=== PATIENT | male | born 1965 | race Hispanic/Latino ===

== ENCOUNTER 2020-07-08 19:02 | Emergency (ER) | payer OTHER ==
[2020-07-08 21:15] VITALS: BP 126/80
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
== END 2020-07-08 23:45 | disposition home or self-care (01) ==
LOC: ED 19:02
DX: S01.511A Laceration without foreign body of lip, initial encounter (principal); I10 Essential (primary) hypertension; M19.91 Primary osteoarthritis, unspecified site; Z98.890 Other specified postprocedural states; Y09 Assault by unspecified means; Y93.89 Activity, other specified; Y92.89 Other specified places as the place of occurrence of the external cause; Y99.8 Other external cause status